=== PATIENT | male | born 1990 | race African-American/Black ===

== ENCOUNTER 2025-02-07 17:28 | Emergency (ER) | payer OTHER, SELFPAY ==
[2025-02-07 17:30] VITALS: BP 125/73
--- NOTE | 2025-02-07 19:22 | ED.GENMED ---
History of Present Illness
General
Chief Complaint: Dental Problem
Source: patient
Exam Limitations: none
Time Seen by Provider: 02/07/25 19:13
History of Present Illness
History of Present Illness:
34-year-old male presents complaining of right lower and upper dental pain over the past several days. He denies fever. He also is HIV positive and is about to run out of his Biktarvy medication. His appointment for this is not until March.
He is requesting a refill on this as well. No chest pain or shortness of breath. No other complaints
Phy Exam
Physical Exam
Physical Exam:
General: Well-appearing male no acute respiratory distress
HEENT: Normocephalic atraumatic poor dentition noted right mandibular third molar. There is decay down to the gumline no surrounding fluctuance. The floor the mouth is soft posterior pharynx is patent and symmetric no trismus or drooling neck is
supple
Extremities: No cyanosis
Course
Orders/Labs/Results
Orders:
Orders
02/07/25 19:21
Ibuprofen [Motrin] 600 mg PO NOW STA
Penicillin V Potassium [Pen Vk] 500 mg PO NOW STA
Vital Signs
Initial and Last Documented VS:
Initial Vital Signs
Temp Pulse Resp BP Pulse Ox
98.1 F 65 18 125/73 99
02/07/25 17:30 02/07/25 17:30 02/07/25 17:30 02/07/25 17:30 02/07/25 17:30
Last Documented Vital Signs
Temp Pulse Resp BP Pulse Ox
98.1 F 65 18 125/73 99
02/07/25 17:30 02/07/25 17:30 02/07/25 17:30 02/07/25 17:30 02/07/25 17:30
MDM/Problems Addressed
Differential Diagnosis Includes:
Dental pain consider possible underlying dental infection. Will prescribe penicillin and advise Motrin. He is running out of his [employer]tar[employer] will provide a prescription for this as well
*Pulse Oximetry
SaO2: 99
Oxygen Mode of Delivery: Room air
Patient hypoxic: no
*Critical Care Note
Total Time (30-74mins, 75-104mins- exclusive of procedures): Not Applicable
ED Attending Note
-
Portions of this chart may have been created with voice recognition software.� Occasional wrong word or��sound alike� substitutions may have occurred due to the inherent limitations of voice recognition software.
Discharge Plan
Departure
Patient Disposition: Home (Routine Discharge)
Date of Disposition: 02/07/25
Time of Disposition: 19:24
Patient with high blood pressure during this ER visit?: No
Discharge Problem:
Pain, dental
Instructions: Dental Pain (DC)
Prescriptions:
New
penicillin V potassium 500 mg tablet
500 mg PO QID Qty: 28 0RF
Biktarvy 50-200-25 mg tablet
1 tab PO DAILY Qty: 30 0RF
Referrals:
Jeff Siu DO [Primary Care Provider]
Activity Restrictions/Additional Instructions:
Take antibiotic as directed. Continue with Motrin and Tylenol for pain. Use warm salt water rinses.
Interventions
Interventions:
*Risk Screen - Suicide Last Done: 02/07/25 17:30
*General Assessment Last Done: 02/07/25 17:30
*ED COVID-19 Vaccine History Last Done: 02/07/25 17:30
Discharge Date and Time
Print Language: [id number]
[2025-02-07] MEDS: MOTRIN 600 MG PO (19:57)
[2025-02-07] MEDS: PEN VK 500 MG PO (19:57)
== END 2025-02-07 20:02 | disposition home or self-care (01) ==
LOC: EMR 17:28
PROVIDERS: EMERGENCY PHYSICIAN Emergency Medicine; PRIMARYCARE PHYSICIAN Family Medicine
DX: K08.89 Other specified disorders of teeth and supporting structures (principal); Z21 Asymptomatic human immunodeficiency virus [HIV] infection status; Z76.0 Encounter for issue of repeat prescription
CPT/HCPCS: 99283